=== PATIENT | female | born 1980 | race Caucasian/White ===

== ENCOUNTER 2025-06-06 11:22 | Emergency (ER) | payer MEDICAID ==
[2025-06-06 12:00] LABS: BASOPHILS ABSOLUTE AUTO 0.07 10^3/uL (0.00-0.50); BASOPHILS PERCENT AUTO 0.8 % (0-1); EOSINOPHILS ABSOLUTE AUTO 0.25 10^3/uL (0.00-1.50); EOSINOPHILS PERCENT AUTO 3.0 % (0-6); IMMATURE GRAN ABSOLUTE AUTO 0.01 10^3/uL (0.00-0.49); IMMATURE GRAN PERCENT AUTO 0.1 % (0.0-4.9); LYMPHOCYTES ABSOLUTE AUTO 3.08 10^3/uL (0.60-5.00); LYMPHOCYTES PERCENT AUTO 36.7 % (24-44); MONOCYTES ABSOLUTE AUTO 0.46 10^3/uL (0.00-1.50); MONOCYTES PERCENT AUTO 5.5 % (0-10); NEUTROPHILS ABSOLUTE AUTO 4.52 x10^3/uL (1.80-8.00); NEUTROPHILS PERCENT AUTO 53.9 % (41-71); PLATELET COUNT,PLT 314 10^3/uL (150-400); RED BLOOD CELL COUNT 4.79 x10^6/uL (4.00-5.50); WHITE BLOOD CELL COUNT,WBC 8.4 10^3/uL (4.0-11.0)
[2025-06-06] MEDS: Promethazine 12.5 MG in Sodium Chloride 0.9% 100 ML IV ONE (12:02)
[2025-06-06] MEDS: fentaNYL 50 MCG/ML SDV IVPUSH ONE (12:04)
[2025-06-06 12:14] LABS: ALANINE AMINOTRANSFERASE,ALT 24 U/L (12-78); ASPARTATE AMNIOTRANSFERASE,AST 16 U/L (15-37); BILIRUBIN TOTAL 0.3 mg/dL (0.0-1.0); BLOOD UREA NITROGEN,BUN 7 mg/dL (7-18); CARBON DIOXIDE,CO2 30 mmol/L (21-32); CHLORIDE,CL 105 mEq/L (98-106); CREATININE 0.8 mg/dL (0.6-1.0); EST CRCL DRUG DOSING (CG) 87.27 mL/min; ESTIMATED GFR 93 mL/min (>=60); GLUCOSE RANDOM 128 mg/dL (75-99); POTASSIUM,K 4.2 mEq/L (3.5-5.0); PROTEIN TOTAL,TP 6.9 g/dL (6.4-8.2); SODIUM,NA 141 mEq/L (136-145)
[2025-06-06 12:40] LABS: APPEARANCE,URINE SLIGHTLY CLOUDY (CLEAR); GLUCOSE,URINE NEGATIVE (NEGATIVE); OCCULT BLOOD,URINE NEGATIVE (NEGATIVE)
[2025-06-06 12:56] LABS: SQUAMOUS EPITHELIAL CELLS,UR FEW /HPF (NOT SEEN)
[2025-06-06] MEDS: Iopamidol 755 Mg/ML 100 ML Bottle IVPUSH ONE (12:56)
[2025-06-06] MEDS: Sodium Chloride 0.9% 10 ML Syringe FLUSH PRN (13:20)
[2025-06-06 15:01] VITALS: BP 128/82; PULSE 62
== END 2025-06-06 15:01 | disposition home or self-care (01) ==
LOC: MERGE 11:22 → CC.ED 11:22
DX: N10 Acute pyelonephritis (principal); Z88.5 Allergy status to narcotic agent; Z88.8 Allergy status to other drugs, medicaments and biological substances; Z79.899 Other long term (current) drug therapy
CPT/HCPCS: 36415; 74177; 80053; 81001; 85025; 86140; 87086; 87088; 87186; 96361; 96365; 96375; 99284; J0696; J2550; J3010; J7030; Q9967